=== PATIENT | male | born 1945 | race American Indian/Alaskan Native ===

== ENCOUNTER 2018-09-26 09:28 | Emergency (ER) | payer OTHER ==
[2018-09-26 09:45] VITALS: RESP 18; TEMP 98.8
[2018-09-26] MEDS ORDERED: Sodium Chloride 0.9% 1,000 ML IV STA (10:06)
--- NOTE | 2018-09-26 10:57 | RAD ---
Date of service: 09/26/2018 HISTORY: epigastric pain COMPARISON: No prior. TECHNIQUE: 1 view obtained. FINDINGS: LUNGS: No active pulmonary disease. PLEURA: No significant pleural effusion identified, no pneumothorax apparent. CARDIOVASCULAR: No aortic atherosclerotic calcification present. Moderate aortic tortuosity Normal cardiac size. No pulmonary vascular congestion. OSSEOUS STRUCTURES: No significant abnormalities. VISUALIZED UPPER ABDOMEN: Normal. OTHER FINDINGS: None. IMPRESSION: No active disease.
--- NOTE | 2018-09-26 11:05 | ED PDOC ---
Arrival/HPI - General Chief Complaint: Abdominal Pain Time Seen by Provider: 09/26/18 09:39 Historian: Patient - History of Present Illness Narrative History of Present Illness (Text): 09/26/18 09:39 Pedro Guzman is a 72 year old male, with a past medical history of hypertension, who presents to the emergency department complaining of severe abdominal cramping and bloating since 3 weeks. Patient informs of nausea, vomiting, and bloating after PO intake. Patient states he has lost 10 lbs due to decreased appetite and intake PO. Patient also appreciates dizziness prior to arrival and tingling sensations. Patient informs seeing PMD and disaster recovery consultant with extensive testing for current complaint; all imaging and labwork unremarkable. Patient took carafate with some improvement. Patient denies taking pain medication. Patient denies fevers, chills, headache, dizziness, painful bowel movements, constipation, dysuria, hematuria, diarrhea, or any other complaint. Time/Duration: < month (3 weeks) Symptom Onset: Gradual Symptom Course: Unchanged Quality: Cramping Activities at Onset: Light Context: Home Past Medical History - Provider Review Nursing Documentation Reviewed: Yes - Infectious Disease Hx of Infectious Diseases: None - Cardiac Hx Cardiac Disorders: Yes Hx Hypertension: Yes - Pulmonary Hx Respiratory Disorders: No - Psychiatric Hx Substance Use: No - Anesthesia Hx Anesthesia: No Family/Social History - Physician Review Nursing Documentation Reviewed: Yes Family/Social History: Unknown Family HX Smoking Status: Current Some Days Smoker Hx Alcohol Use: No Hx Substance Use: No Allergies/Home Meds Allergies/Adverse Reactions: Allergies No Known Allergies Allergy (Verified 09/26/18 09:45) Home Medications: Home Meds Medication Instructions Recorded Confirmed amLODIPine [Norvasc] 10 mg PO DAILY 09/26/18 09/26/18 Review of Systems - Review of Systems Constitutional: absent: Fevers, Other (chills) Gastrointestinal: Abdominal Pain (severe cramping), Nausea, Vomiting, Appetite Changes (decreased), Food Intolerance. absent: Constipation, Diarrhea, Other (painful bowel movements) Genitourinary Male: absent: Dysuria, Hematuria Neurological: absent: Headache, Dizziness Physical Exam Vital Signs Reviewed: Yes Vital Signs Temp Pulse Resp BP Pulse Ox 09/26/18 09:41 98.8 F 93 H 18 147/96 H 96 Temperature: Afebrile Blood Pressure: Normal Pulse: Regular Respiratory Rate: Normal Appearance: Positive for: Well-Appearing, Non-Toxic, Comfortable Pain Distress: None Mental Status: Positive for: Alert and Oriented X 3 - Systems Exam Head: Present: Atraumatic, Normocephalic Pupils: Present: PERRL Extroacular Muscles: Present: EOMI Conjunctiva: Present: Normal Mouth: Present: Moist Mucous Membranes Neck: Present: Normal Range of Motion Respiratory/Chest: Present: Clear to Auscultation, Good Air Exchange. No: Respiratory Distress, Accessory Muscle Use, Wheezes, Rales, Rhonchi Cardiovascular: Present: Regular Rate and Rhythm, Normal S1, S2. No: Murmurs, Rub, Gallop Abdomen: Present: Tenderness (LUQ tenderness), Normal Bowel Sounds. No: Distention, Peritoneal Signs, Rebound, Guarding Back: Present: Normal Inspection Upper Extremity: Present: Normal Inspection. No: Cyanosis, Edema Lower Extremity: Present: Normal Inspection. No: Edema Neurological: Present: GCS=15, CN II-XII Intact, Speech Normal Skin: Present: Warm, Dry, Normal Color. No: Rashes Psychiatric: Present: Alert, Oriented x 3, Normal Insight, Normal Concentration Medical Decision Making ED Course and Treatment: 09/26/18 09:39 Impression: Thomas Gray is a 72 year old male, with a past medical history of hypertension, who presents to the emergency department complaining of severe abdominal cramping and bloating since 3 weeks. Plan: -- EKG -- Chest X-Ray -- IV Fluids -- Zofran Inj -- Urinalysis -- Reassess and disposition Prior Visits: Notes and results from previous visits were reviewed. Progress Notes: Labs and imaging completed. Patient with nonspecific enteritis/colitis, however in the absence of fever or leukocytosis, plus symptom onset several weeks ago with negative workup thus far, unlikely to be acute infection requiring antibiotic treatment at this time. Advised following up with PMD and disaster recovery consultant. - RAD Interpretation Narrative RAD Interpretations (Text): 09/26/18 10:53 Chest X-Ray shows: IMPRESSION: No active disease. 09/26/18 12:43 CT A/P with Contrast shows: IMPRESSION: Findings are most compatible with nonspecific acute infectious/inflammatory enteritis and colitis, worse in the distal and terminal ileum. Small amount of free fluid in the abdomen. 1.4 x 1.9 cm indeterminate lesion in the right hepatic lobe. Please correlate with right upper quadrant ultrasound. Radiology Orders: 09/26/18 10:06 CHEST PORTABLE [RAD] Stat Log Rafter: Radiologist - EKG Interpretation EKG Interpretation (Text): 0948- NSR, rate 88, normal axis, normal intervals, bifascicular block (RBBB, LAFB), no ST elevations Interpreted by ED Physician: Yes Type: 12 lead EKG - Medication Orders Current Medication Orders: Sodium Chloride (Sodium Chloride 0.9%) 1,000 mls @ 999 mls/hr IV .Q1H1M STA Stop: 09/26/18 11:06 Discontinued Medications Ondansetron HCl (Zofran Inj) 4 mg IVP STAT STA Stop: 09/26/18 10:07 - Scribe Statement The provider has reviewed the documentation as recorded by the Scribe Dontae Hare All medical record entries made by the Scribe were at my direction and personally dictated by me. I have reviewed the chart and agree that the record accurately reflects my personal performance of the history, physical exam, medical decision making, and the department course for this patient. I have also personally directed, reviewed, and agree with the discharge instructions and disposition. Disposition/Present on Arrival - Present on Arrival Any Indicators Present on Arrival: No History of DVT/PE: No History of Uncontrolled Diabetes: No Urinary Catheter: No History of Decub. Ulcer: No History Surgical Site Infection Following: None - Disposition Have Diagnosis and Disposition been Completed?: Yes Diagnosis: Abdominal pain Disposition: HOME/ ROUTINE Disposition Time: 14:20 Condition: STABLE Discharge Instructions (ExitCare): Acute Abdomen (Belly Pain), Adult (DC) Additional Instructions: THOMAS GRAY, thank you for letting us take care of you today. Your provider was Migdalia Keyes MD and you were treated for abdominal pain. The emergency medical care you received today was directed at your acute symptoms. If you were prescribed any medication, please fill it and take as directed. It may take several days for your symptoms to resolve. Return to the Emergency Department if your symptoms worsen, do not improve, or if you have any other problems. Please contact your doctor or call one of the physicians/clinics you have been referred to that are listed on the Patient Visit Information form that is included in your discharge packet. Bring any paperwork you were given at [facility] with you along with any medications you are taking to your follow up visit. Our treatment cannot replace ongoing medical care by a primary care provider outside of the emergency department. Thank you for allowing the [facility] team to be part of your care today. If you had an X-Ray or CT scan: A Radiologist will review the ED reading if any change in treatment is needed we will contact you. If you had a blood, urine, or wound culture: It will take several days for the results, if any change in treatment is needed we will contact you. If you had an STI test: It will take 48 hours for the results. Please call after 1 week if you have not heard back. Referrals: Sachin Stein MD, PhD [Primary Care Provider] - Follow up with primary Forms: [employer] (Greenlandic)
[2018-09-26 11:13] VITALS: BP 141/71; PULSE 85; O2SAT 98
[2018-09-26 11:18] LABS: BASO # 0.03 K/mm3 (0.0-2.0); BASO % 0.5 % (0.0-3.0); EOS # 0.3 (0.0-0.7); EOS % 4.7 % (1.5-5.0); HEMOGLOBIN 12.6 g/dL (14.0-18.0); LYMPH # 1.2 (1.2-3.4); LYMPH % 20.8 % (22.0-35.0); MEAN CELL VOLUME 84.3 fl (80.0-105.0); MEAN CORPUSCULAR HEMOGLOBIN 27.2 pg (25.0-35.0); MEAN CORPUSCULAR HGB CONC 32.2 g/dl (31.0-37.0); MONO # 0.3 (0.1-0.6); MONO % 5.4 % (1.0-6.0); RBC 4.64 10^6/uL (3.5-6.1); WHITE BLOOD COUNT 5.5 10^3/uL (4.5-11.0)
[2018-09-26 11:23] LABS: URINE BILIRUBIN NEGATIVE (NEGATIVE); URINE BLOOD NEGATIVE (NEGATIVE); URINE GLUCOSE (UA) NEGATIVE (NEGATIVE); URINE LEUKOCYTE ESTERASE NEGATIVE Leu/uL (NEGATIVE); URINE PROTEIN NEGATIVE mg/dL (<30 mg/dL); URINE UROBILINOGEN 0.2 E.U./dL (<1 E.U./dL)
[2018-09-26 11:26] LABS: URINE APPEARANCE CLEAR (CLEAR); URINE COLOR LIGHT YELLOW (YELLOW)
[2018-09-26 11:27] LABS: ALB/GLOB RATIO 1.4 (1.1-1.8); ALT/SGPT 11 U/L (7-56); AST/SGOT 20 U/L (17-59); BLOOD UREA NITROGEN 9 mg/dL (7-21); CALCIUM 9.3 mg/dL (8.4-10.5); GFR NON-AFRICAN AMERICAN > 60; LIPASE 376 U/L (23-300)
[2018-09-26 11:40] LABS: TROPONIN I < 0.01 ng/mL
[2018-09-26] MEDS ORDERED: Iohexol 350 MG/100 ML VIAL ONE (11:41)
--- NOTE | 2018-09-26 12:47 | CT ---
Date of service: 09/26/2018 PROCEDURE: CT Abdomen and Pelvis with contrast HISTORY: Abdominal pain COMPARISON: None available. TECHNIQUE: CT scan of the abdomen and pelvis was performed after administration of intravenous contrast. Oral contrast was not administered. Coronal and sagittal reformatted images were obtained. Contrast dose: 100 mL Omnipaque 350 Radiation dose: Total exam DLP = 235.75 mGy-cm. This CT exam was performed using one or more of the following dose reduction techniques: Automated exposure control, adjustment of the mA and/or kV according to patient size, and/or use of iterative reconstruction technique. FINDINGS: LOWER THORAX: There is subsegmental atelectasis in the lung bases. LIVER: Normal in size with homogeneous enhancement. A small low-attenuation lesion in the hepatic dome is too small to characterize by CT criteria. There is a 1.4 x 0.9 cm low-attenuation lesion in the anterior right hepatic lobe. No gross lesion or ductal dilatation. GALLBLADDER AND BILE DUCTS: Well distended. No calcified gallstones, wall thickening or pericholecystic fluid. PANCREAS: Normal in size with homogeneous enhancement. No gross lesion or ductal dilatation. SPLEEN: Normal in size and appearance. ADRENALS: No discrete nodule. KIDNEYS AND URETERS: Normal in size with homogeneous enhancement. No hydronephrosis. No solid mass. Small simple cysts in the left kidney. VASCULATURE: No aortic aneurysm. There are no aortic atherosclerotic calcifications or mural plaque present. BOWEL: Evaluation of the bowel is limited in the absence of oral contrast. There are fluid-filled dilated small bowel loops with multiple air-fluid levels and long segmental circumferential mural thickening in the distal and terminal ileum. There is colonic diverticulosis. There is apparent mild circumferential mural thickening in the colon. APPENDIX: Normal appendix. PERITONEUM: Small amount of free fluid in the abdomen. No free air. LYMPH NODES: No enlarged lymph nodes. BLADDER: Well distended and normal in appearance. REPRODUCTIVE: The uterus is normal in size. BONES: No acute fracture. Multilevel degenerative changes with large Schmorl's node at the superior and inferior endplate of L1. OTHER FINDINGS: None. IMPRESSION: Findings are most compatible with nonspecific acute infectious/inflammatory enteritis and colitis, worse in the distal and terminal ileum. Small amount of free fluid in the abdomen. 1.4 x 1.9 cm indeterminate lesion in the right hepatic lobe. Please correlate with right upper quadrant ultrasound.
--- NOTE | 2018-09-26 18:39 | CARD ---
APPROVED REPORT Date of service: 09/26/2018 EKG Measurement Heart [id number] <Conclusion> Normal sinus rhythm Left anterior fascicular block Abnormal ECG
== END 2018-09-26 14:20 | disposition home or self-care (01) ==
LOC: ED 09:28
DX: R10.13 Epigastric pain (principal); I10 Essential (primary) hypertension
CPT/HCPCS: 71045; 74177; 80053; 81003; 83690; 83735; 84100; 84484; 85025; 93005; 96361; 96374; 99283; J2405; J7030; Q9967

== ENCOUNTER 2018-10-09 12:40 | Emergency (ER) | payer OTHER ==
[2018-10-09 12:59] VITALS: BMI 19.2
[2018-10-09 13:30] VITALS: BP 128/76; TEMP 98.1; O2SAT 99
[2018-10-09] MEDS ORDERED: POLYETHYLENE GLYCOL 3350 17 GM/Dose PACKET PO STA (13:30)
[2018-10-09] MEDS ORDERED: Sodium Chloride 0.9% 1,000 ML IV SCH (13:30)
--- NOTE | 2018-10-09 13:38 | ED PDOC ---
Arrival/HPI - General Historian: Patient - History of Present Illness Narrative History of Present Illness (Text): 10/09/18 13:34 CC: Abdominal Pain HPI: 72 yo male w/ PMH of HTN comes to ED for evaluation of ongoing abdominal pain with nausea/vomiting for past 2-3 months. Patient of note was in ED on 09/26/18 for similar symptoms for which he got a CT scan of abd/pelvis. Patient states he has noticed poor oral intake for past 2-3 months due to fear of vomiting resulting in a 10 pound weight loss. Admits to family history of colon cancer. Most recent CSPY 5 years ago with normal results as per patient. Patient states he has a bowel movement yesterday but feels like he still has more to go. Patient admits to one episode of vomiting in the morning today. Has appointment with GI on 10/10/18. Patient states the abdominal pain starts after consumption of solid or liquid feeds causing cramping localized in mid-epigastric region and left upper and bottom quadrant. Denies fevers, chest pain, sob, n/v, constipation or diarrhea. Admits to nausea/vomiting, tinnitus, chills, abdominal pain. Time/Duration: > month Symptom Course: Intermittent, Worsening Quality: Cramping Activities at Onset: Eating Context: Sitting <Miri Medley - Last Filed: 10/09/18 14:35> <Dontae Wisdom DO - Last Filed: 10/09/18 18:23> - General Chief Complaint: Abdominal Pain Time Seen by Provider: 10/09/18 12:44 Past Medical History - Provider Review Nursing Documentation Reviewed: Yes - Infectious Disease Hx of Infectious Diseases: None - Cardiac Hx Cardiac Disorders: Yes Hx Hypertension: Yes - Pulmonary Hx Respiratory Disorders: No - Neurological Hx Neurological Disorder: No - HEENT Hx HEENT Disorder: No - Renal Hx Renal Disorder: No - Endocrine/Metabolic Hx Endocrine Disorders: No - Psychiatric Hx Substance Use: No - Anesthesia Hx Anesthesia: No <Miri Medley - Last Filed: 10/09/18 14:35> Family/Social History - Physician Review Nursing Documentation Reviewed: Yes Family/Social History: No Known Family HX Smoking Status: Current Some Days Smoker Hx Alcohol Use: No Hx Substance Use: No <Miri Medley - Last Filed: 10/09/18 14:35> Allergies/Home Meds <Miri Medley - Last Filed: 10/09/18 14:35> <Artis MCKENZIEDontae - Last Filed: 10/09/18 18:23> Allergies/Adverse Reactions: Allergies No Known Allergies Allergy (Verified 10/09/18 12:59) Home Medications: Home Meds Medication Instructions Recorded Confirmed amLODIPine [Norvasc] 10 mg PO DAILY 09/26/18 10/09/18 Review of Systems - Physician Review All systems were reviewed & negative as marked: Yes - Review of Systems Constitutional: Normal. absent: Fatigue, Weight Change, Fevers, Night Sweats Eyes: Normal. absent: Vision Changes, Photophobia, Eye Pain ENT: Normal. absent: Hearing Changes, Tinnitus, TMJ Pain Respiratory: Normal. absent: SOB, Cough, Sputum, Wheezing Cardiovascular: Normal. absent: Chest Pain, Palpitations, Edema, Calf Pain, Orthopnea, Syncope Gastrointestinal: Abdominal Pain, Nausea, Vomiting, Appetite Changes (decreased oral intake). absent: Stool Changes, Diarrhea Genitourinary Male: Normal. absent: Dysuria, Frequency, Hematuria, Urinary Output Changes Musculoskeletal: Normal. absent: Arthralgias, Back Pain, Neck Pain, Joint Swelling Skin: Normal. absent: Rash, Pruritis, Skin Lesions, Laceration Neurological: Normal. absent: Headache, Dizziness, Focal Weakness Endocrine: Normal. absent: Diaphoresis, Polyuria, Polydipsia Psychiatric: Normal. absent: Anxiety, Depression <Miri Medley - Last Filed: 10/09/18 14:35> Physical Exam Vital Signs Reviewed: Yes Vital Signs Temp Pulse Resp BP Pulse Ox 10/09/18 13:29 98.1 F 84 18 128/76 99 Temperature: Afebrile Blood Pressure: Normal Pulse: Regular Respiratory Rate: Normal Appearance: Positive for: Well-Appearing, Non-Toxic, Comfortable Pain Distress: Mild Mental Status: Positive for: Alert and Oriented X 3 - Systems Exam Head: Present: Atraumatic, Normocephalic. No: Tenderness, Contusion, Swelling, Ecchymosis Pupils: Present: PERRL. No: Sluggish, Non-Reactive Extroacular Muscles: Present: EOMI. No: Gaze Palsy, Entrapment Conjunctiva: Present: Normal Mouth: Present: Dry Neck: Present: Normal Range of Motion. No: Meningeal Signs, JVD Respiratory/Chest: Present: Clear to Auscultation, Good Air Exchange. No: Respiratory Distress, Accessory Muscle Use, Wheezes, Decreased Breath Sounds Cardiovascular: Present: Regular Rate and Rhythm, Normal S1, S2. No: Murmurs, Irregular Rhythm Abdomen: Present: Normal Bowel Sounds. No: Tenderness, Distention, Peritoneal Signs Upper Extremity: Present: Normal Inspection. No: Cyanosis, Edema Lower Extremity: Present: Normal Inspection. No: Edema, CALF TENDERNESS, NORMAL PULSES Neurological: Present: GCS=15, CN II-XII Intact, Speech Normal Skin: Present: Warm, Dry, Normal Color. No: Rashes Psychiatric: Present: Alert, Oriented x 3, Normal Insight, Normal Concentration <Miri Medley - Last Filed: 10/09/18 14:35> Vital Signs Temp Pulse Resp BP Pulse Ox 10/09/18 13:29 98.1 F 84 18 128/76 99 <Dontae Wisdom DO - Last Filed: 10/09/18 18:23> Medical Decision Making ED Course and Treatment: 10/09/18 13:41 Impression 72 yo male comes to ED for evaluation of abdominal pain with associated nausea/vomiting causing 10 lb weight loss in past 2 months. Plan -CBC/CMP/Mag/Phos -IV protonix -Miralax PO -NS @ 100mls/hr Prior Visits All prior documentation and lab work has been reviewed for this evaluation Progress Notes Will monitor patient tolerance to above listed regimen. Will need outpatient endoscopy and colonoscopy for completed workup for abdominal pain with weight loss Differential to consider: Malignancy vs Peptic Ulcer Disease vs Gastritis 10/09/18 14:35 Symptoms improved s/p Protonix treatment. Patient labwork reviewed with no acute abnormalities to address. Patient will be discharged with oral protonix and has a f/u appointment with GI in the AM Please f/u with PMD within a week of discharge from hospital. Re-evaluation Time: 14:36 Reassessment Condition: Improving,but remains with symptoms - Lab Interpretations Lab Results: 10/09/18 13:48 10/09/18 13:48 Lab Results 10/09/18 13:48: Sodium 138, Potassium 4.3, Chloride 104, Carbon Dioxide 27, Anion Gap 12, BUN 10, Creatinine 0.9, Est GFR ( Amer) > 60, Est GFR (Non- Af Amer) > 60, Random Glucose 99, Calcium 9.7, Phosphorus 3.6, Magnesium 2.2, Total Bilirubin 0.6, AST 17, ALT 24, Alkaline Phosphatase 67, Total Protein 6.7, Albumin 3.9, Globulin 2.8, Albumin/Globulin Ratio 1.4 10/09/18 13:48: WBC 4.9, RBC 4.96, Hgb 13.5 L, Hct 40.7 L, MCV 82.1, MCH 27.2, MCHC 33.2, RDW 13.3, Plt Count 299, MPV 8.3, Neut % (Auto) 60.9, Lymph % (Auto) 28.0, Elbert % (Auto) 10.1 H, Eos % (Auto) 0.6 L, Baso % (Auto) 0.4, Lymph # (Auto) 1.4, Elbert # (Auto) 0.5, Eos # (Auto) 0.0, Baso # (Auto) 0.02, Absolute Neuts (auto) 3.00 I have reviewed the lab results: Yes Interpretation: All labs normal - Medication Orders Current Medication Orders: Sodium Chloride (Sodium Chloride 0.9%) 1,000 mls @ 100 mls/hr IV .Q10H CATIA Discontinued Medications Pantoprazole Sodium (Protonix Inj) 40 mg IVP STAT STA Stop: 10/09/18 13:31 Polyethylene Glycol (Miralax) 17 gm PO STAT STA Stop: 10/09/18 13:31 <Miri Medley - Last Filed: 10/09/18 14:35> ED Course and Treatment: 10/09/18 14:48 Patient Seen with Resident: In agreement with resident note which contains more details about the patient. Patient seen and evaluated with resident. Came up with plan and treatment together. - Lab Interpretations Lab Results: Total Bilirubin 0.6 mg/dL (0.2-1.3) 10/09/18 13:48 AST 17 U/L (17-59) 10/09/18 13:48 ALT 24 U/L (7-56) 10/09/18 13:48 Alkaline Phosphatase 67 U/L (38-126) 10/09/18 13:48 Total Protein 6.7 g/dL (5.8-8.3) 10/09/18 13:48 Albumin 3.9 g/dL (3.0-4.8) 10/09/18 13:48 Globulin 2.8 gm/dL 10/09/18 13:48 Albumin/Globulin Ratio 1.4 (1.1-1.8) 10/09/18 13:48 - Medication Orders Current Medication Orders: Sodium Chloride (Sodium Chloride 0.9%) 1,000 mls @ 100 mls/hr IV .Q10H CATIA Last Admin: 10/09/18 13:48 Dose: 100 mls/hr eMAR Start Stop Document 10/09/18 13:48 [email or web address] (Rec: 10/09/18 13:49 [email or web address] [id number]) Intravenous Solution Start Date 10/09/18 Start Time 13:49 Discontinued Medications Pantoprazole Sodium (Protonix Inj) 40 mg IVP STAT STA Stop: 10/09/18 13:31 Last Admin: 10/09/18 13:49 Dose: 40 mg IVP Administration Document 10/09/18 13:49 [email or web address] (Rec: 10/09/18 13:49 [email or web address] [id number]) Charges for Administration # of IVP Administrations 1 Polyethylene Glycol (Miralax) 17 gm PO STAT STA Stop: 10/09/18 13:31 Last Admin: 10/09/18 13:49 Dose: 17 gm <Dontae Wisdom DO - Last Filed: 10/09/18 18:23> - PA / PSYCHOTHERAPIST / Resident Statement MIKI has reviewed & agrees with the documentation as recorded. MIKI has examined the patient and agrees with the treatment plan. <Dontae Wisdom DO - Last Filed: 10/09/18 18:23> Disposition/Present on Arrival - Present on Arrival Any Indicators Present on Arrival: No History of DVT/PE: No History of Uncontrolled Diabetes: No Urinary Catheter: No History of Decub. Ulcer: No History Surgical Site Infection Following: None - Disposition Have Diagnosis and Disposition been Completed?: Yes Disposition Time: 14:37 Patient Plan: Discharge <Miri Medley - Last Filed: 10/09/18 14:35> - Disposition Disposition Time: 14:20 <Dontae Wisdom DO - Last Filed: 10/09/18 18:23> - Disposition Diagnosis: Chronic abdominal pain Disposition: HOME/ ROUTINE Condition: GOOD Additional Instructions: 1. Please followup with GI for outpatient EGD and CSPY 2. Please followup with PMD within a week of discharge from hospital 3. Patient will be discharged with oral protonix in the interim, please follow up recommendations at GI visit as well. 4. Refrain from NSAID use until possible EGD Prescriptions: Pantoprazole Sodium [Protonix] 40 mg PO DAILY #14 ect Forms: Adiana (French)
[2018-10-09 13:53] LABS: BASO # 0.02 K/mm3 (0.0-2.0); BASO % 0.4 % (0.0-3.0); EOS % 0.6 % (1.5-5.0); HEMOGLOBIN 13.5 g/dL (14.0-18.0); LYMPH # 1.4 (1.2-3.4); MEAN CELL VOLUME 82.1 fl (80.0-105.0); MEAN CORPUSCULAR HEMOGLOBIN 27.2 pg (25.0-35.0); MEAN CORPUSCULAR HGB CONC 33.2 g/dl (31.0-37.0); MEAN PLATELET VOLUME 8.3 fl (7.0-11.0); MONO # 0.5 (0.1-0.6); MONO % 10.1 % (1.0-6.0); RBC 4.96 10^6/uL (3.5-6.1); RED CELL DISTRIBUTION WIDTH 13.3 % (11.5-14.5); WHITE BLOOD COUNT 4.9 10^3/uL (4.5-11.0)
[2018-10-09 14:04] LABS: ALBUMIN 3.9 g/dL (3.0-4.8); BLOOD UREA NITROGEN 10 mg/dL (7-21); CALCIUM 9.7 mg/dL (8.4-10.5); GFR NON-AFRICAN AMERICAN > 60
[2018-10-09 14:05] LABS: ALB/GLOB RATIO 1.4 (1.1-1.8); ALT/SGPT 24 U/L (7-56); AST/SGOT 17 U/L (17-59)
[2018-10-09 14:49] VITALS: PULSE 87; RESP 19
== END 2018-10-09 14:49 | disposition home or self-care (01) ==
LOC: ED 12:40
DX: R10.9 Unspecified abdominal pain (principal); G89.29 Other chronic pain; I10 Essential (primary) hypertension; Z80.0 Family history of malignant neoplasm of digestive organs; F17.210 Nicotine dependence, cigarettes, uncomplicated
CPT/HCPCS: 80053; 83735; 84100; 85025; 96374; 99282; C9113; J7030